=== PATIENT | male | born 1995 | race Caucasian/White ===

== ENCOUNTER 2020-02-19 05:55 | Outpatient (CLI) | payer BC ==
[~2020-02-19] VITALS: Ht 185.4 cm; Wt 112.7 kg
[2020-02-19 06:17] LABS: BASOPHILS 0.2 % (0-2); HEMATOCRIT 46.3 % (42.0-54.0); HEMOGLOBIN 15.6 g/dL (13.5-17.5); IMMATURE GRANULOCYTES 0.2 % (0-5); LYMPHOCYTES 34.8 % (15-50); MCHC 33.7 g/dL (31.0-37.0); MCV 80.1 fL (80.0-100.0); MEAN PLATELET VOLUME 10.2 fL (7.4-10.4); NEUTROPHILS 54.8 % (40-80); PLATELET COUNT 105 10x3/uL (130-400); RBC 5.78 10x6/uL (4.20-6.10); RDW 12.8 % (11.5-14.5)
[2020-02-19 06:31] LABS: INR 1.03 (0.85-1.17); PROTIME 13.5 SECONDS (11.6-15.0)
[2020-02-19 06:32] LABS: APTT 31.2 SECONDS (22.8-39.4)
[2020-02-19 06:39] LABS: ANION GAP 6.3 mmol/L (8-16); CALCIUM 8.8 mg/dL (8.5-10.1); CARBON DIOXIDE 34.4 mmol/L (21.0-32.0); CREATININE - SERUM 1.3 mg/dL (0.6-1.3); POTASSIUM - SERUM 3.7 mmol/L (3.5-5.1)
[2020-02-19] MEDS ORDERED: LISINOPRIL10 MG PO (06:53)
[2020-02-19 07:00] VITALS: BP 122/79; Ht 185.4 cm; Wt 112.7 kg
--- NOTE | 2020-02-19 07:18 | NUR ---
NOTIFIED RICARDO RN SPECIALS NURSE, REGARDING PT NOT HAVING A HISTORY AND PHYSICAL.
[2020-02-19] MEDS ORDERED: ATIVAN1 MG PO (07:42)
--- NOTE | 2020-02-19 09:09 | NUR ---
0905 DRESSING WITHOUT HEMATOMA OR PROBLEMS, CDI, TIME FRAME FOR RELEASE GIVEN [id number].
== END 2020-02-19 13:45 | disposition home or self-care (01) ==
LOC: D.SP 05:55 → D.CT 08:00 → D.SP 08:00
PROVIDERS: Specialist; ATTEND Internal Medicine Hematology & Oncology
DX: D69.6 Thrombocytopenia, unspecified (principal); I10 Essential (primary) hypertension; E78.2 Mixed hyperlipidemia; D64.9 Anemia, unspecified